=== PATIENT | female | born 1975 | race Two or more races ===

== ENCOUNTER 2023-01-18 23:56 | Emergency (ER) | payer OTHER ==
[~2023-01-18] VITALS: Ht 157.5 cm; Wt 85.0 kg
[2023-01-19] MEDS ORDERED: MYCO500T PO (00:08)
[2023-01-19] MEDS ORDERED: PRED-554 PO (00:09)
[2023-01-19] MEDS ORDERED: OMEP20 PO (00:10)
[2023-01-19] MEDS ORDERED: IBUP-1493 PO (00:12)
[2023-01-19 00:32] LABS: APPEARANCE,URINE CLEAR (CLEAR); BILIRUBIN,URINE NEGATIVE (NEGATIVE); COLOR,URINE YELLOW (YELLOW); GLUCOSE, URINE (UA) 70-100 mg/dL (NEGATIVE); KETONES,URINE NEGATIVE (NEGATIVE); LEUKOCYTE ESTERASE ,URINE NEGATIVE (NEGATIVE); NITRATE,URINE NEGATIVE (NEGATIVE); OCCULT BLOOD,URINE MODERATE (NEGATIVE); PROTEIN,URINE 30-70 mg/dL (NEGATIVE); SPECIFIC GRAVITIY, URINE 1.026 (1.003-1.030); UROBILINOGEN,URINE <=1.0 mg/dL (<=1.0)
[2023-01-19] MEDS ORDERED: KETOROLAC TROMETHAMINE 30 MG/ML VIAL IVP ONE (00:45)
[2023-01-19] MEDS ORDERED: ONDANSETRON HCL 4 MG/2 ML VIAL IVP ONE ×2 (00:45→06:15)
[2023-01-19 00:52] LABS: BASOPHILS % (AUTO) 0.2 % (0.0-2.0); EOSINOPHILS % (AUTO) 0 % (1.0-6.0); LYMPHOCYTES # (AUTO) 0.4 K/uL (1.0-4.8); LYMPHOCYTES % (AUTO) 10.3 % (22.0-44.0); MEAN CORPUSCULAR HEMOGLOBIN 27.6 pg (26.0-34.0); MEAN CORPUSCULAR HGB CONC 33.3 G/dL (31.0-37.0); MEAN CORPUSCULAR VOLUME 83 fL (80-100); MONOCYTES # (AUTO) 0.5 K/uL (0.1-1.0); MONOCYTES % (AUTO) 11.2 % (2.0-9.0); NEUTROPHILS # (AUTO) 3.2 K/uL (1.8-7.7); NEUTROPHILS % (AUTO) 78.3 % (40.0-70.0); PLATELET COUNT (AUTO) 132 K/uL (150-450); RED BLOOD CELL COUNT(AUTO) 3.61 MIL/uL (4.00-5.20); RED CELL DISTRIBUTION WIDTH 15.9 % (11.5-14.5)
[2023-01-19 00:52] LABS: BACTERIA,URINE None Seen /HPF (None Seen); SQUAMOUS EPITHELIAL CELL,UR Few /LPF (None Seen); WBC,URINE None Seen /HPF (0-5)
[2023-01-19 01:01] LABS: ANION GAP 3 mmol/L (8-16); CARBON DIOXIDE 28 mmol/L (22-29); CHLORIDE 105 mmol/L (98-107); CREATININE 0.76 mg/dL (0.60-1.30); GLOMERULAR FILTR. RATE CALC > 60 mL/min (>60); GLUCOSE,RANDOM 201 mg/dL (70-110); POTASSIUM 4.3 mmol/L (3.5-5.1); SODIUM SERUM 136 mmol/L (136-145); UREA NITROGEN, BLOOD 14 mg/dL (7-18)
[2023-01-19 01:06] LABS: ALANINE AMINOTRANSFERASE 139 U/L (12-78); ALBUMIN 2.7 g/dL (3.4-5.0); ALKALINE PHOSPHATASE 131 U/L (46-116); ASPARTATE AMINOTRANSFERASE 217 U/L (15-37); BILIRUBIN,TOTAL 0.2 mg/dL (0.1-1.0); TOTAL PROTEIN, SERUM 7.1 g/dL (6.4-8.2)
[2023-01-19 06:19] LABS: BASOPHILS % (AUTO) 0.2 % (0.0-2.0); EOSINOPHILS % (AUTO) 0 % (1.0-6.0); HEMATOCRIT 29.6 % (36-46); HEMOGLOBIN 9.8 g/dL (12.0-16.0); LYMPHOCYTES # (AUTO) 0.7 K/uL (1.0-4.8); LYMPHOCYTES % (AUTO) 14.6 % (22.0-44.0); MEAN CORPUSCULAR HEMOGLOBIN 27.7 pg (26.0-34.0); MEAN CORPUSCULAR HGB CONC 33.2 G/dL (31.0-37.0); MEAN CORPUSCULAR VOLUME 83 fL (80-100); MONOCYTES # (AUTO) 0.6 K/uL (0.1-1.0); MONOCYTES % (AUTO) 11.9 % (2.0-9.0); NEUTROPHILS # (AUTO) 3.8 K/uL (1.8-7.7); NEUTROPHILS % (AUTO) 73.3 % (40.0-70.0); PLATELET COUNT (AUTO) 157 K/uL (150-450); RED BLOOD CELL COUNT(AUTO) 3.55 MIL/uL (4.00-5.20); RED CELL DISTRIBUTION WIDTH 16.1 % (11.5-14.5); WHITE BLOOD COUNT (AUTO) 5.1 K/uL (4.5-11.0)
[2023-01-19 06:33] LABS: INR 0.9 (0.9-1.1); PROTHROMBIN TIME 9.8 SEC (9.4-11.6)
[2023-01-19 06:37] VITALS: TEMP 98
[2023-01-19 06:42] LABS: TROPONIN I-HIGH SENSITIVITY 9 ng/L (<51)
[2023-01-19 08:07] LABS: COVID AG,FIA SOURCE NASAL SWAB
[2023-01-19 08:31] LABS: SARS-COV2 (COVID) ANTIGEN,FIA Negative (Negative)
[2023-01-19 09:01] LABS: CREATINE KINASE, TOTAL ONLY 538 U/L (26-192)
[2023-01-19] MEDS ORDERED: CETI10TA58 PO (11:37)
[2023-01-19] MEDS ORDERED: METF-1211 PO (11:37)
[2023-01-19 16:14] VITALS: BP 133/87; PULSE 127; RESP 20
== END 2023-01-19 16:14 | disposition short-term general hospital (02) ==
LOC: EMS 23:57
DX: M79.81 Nontraumatic hematoma of soft tissue (principal); E11.65 Type 2 diabetes mellitus with hyperglycemia; R79.89 Other specified abnormal findings of blood chemistry; Z20.822 Contact with and (suspected) exposure to COVID-19
CPT/HCPCS: 99291; 87426; 80053; 81001; 82550; 84484; 84703; 85025; 85610; 85730; 36415; 96374; 96375; 96376; J1885; J2405

== ENCOUNTER 2023-02-23 21:58 | Inpatient (IN) | payer OTHER ==
[~2023-02-23] VITALS: Ht 160 cm; Wt 63.2 kg
[~2023-02-23 21:58] MED LIST: CETI10TA58 PO; IBUP-1493 PO; METF-1211 PO; MYCO500T PO; OMEP20 PO; PRED-554 PO
[2023-02-23] MEDS ORDERED: ALBUTEROL SULFATE 2.5 MG/0.5 ML NEB SOLUTION NEB ONE (22:55)
[2023-02-23] MEDS ORDERED: 0.9% SODIUM CHLORIDE 5 ML NEB SOLUTION NEB ONE (23:01)
[2023-02-23 23:15] VITALS: PULSE 117; RESP 22; O2SAT 93
[2023-02-23 23:27] LABS: BASOPHILS % (AUTO) 0.5 % (0.0-2.0); EOSINOPHILS % (AUTO) 0 % (1.0-6.0); HEMATOCRIT 33.8 % (36-46); LYMPHOCYTES # (AUTO) 0.4 K/uL (1.0-4.8); LYMPHOCYTES % (AUTO) 9.9 % (22.0-44.0); MEAN CORPUSCULAR HEMOGLOBIN 27.9 pg (26.0-34.0); MEAN CORPUSCULAR HGB CONC 32.5 G/dL (31.0-37.0); MEAN CORPUSCULAR VOLUME 86 fL (80-100); MONOCYTES # (AUTO) 0.2 K/uL (0.1-1.0); MONOCYTES % (AUTO) 4.8 % (2.0-9.0); NEUTROPHILS # (AUTO) 3.5 K/uL (1.8-7.7); NEUTROPHILS % (AUTO) 84.8 % (40.0-70.0); PLATELET COUNT (AUTO) 215 K/uL (150-450); RED BLOOD CELL COUNT(AUTO) 3.94 MIL/uL (4.00-5.20); RED CELL DISTRIBUTION WIDTH 19.4 % (11.5-14.5); WHITE BLOOD COUNT (AUTO) 4.1 K/uL (4.5-11.0)
[2023-02-23 23:30] VITALS: PULSE 118; RESP 22; O2SAT 97
[2023-02-23 23:34] LABS: ABG BASE EXCESS -1.6 mmol/L (-2.0-3.0); ABG CARBOXYHEMOGLOBIN 0.7 % (0.0-1.5); ABG HCO3 23.7 mmol/L (22.0-26.0); ABG METHEMOGLOBIN 0.7 % (0.0-1.5); ABG OXYGEN CONTENT 16.9 mL/dL (15.0-23.0); ABG OXYHEMOGLOBIN 95.6 % (94.0-100.0); ABG PCO2 33 mmHg (35-45); ABG PH 7.447 (7.35-7.450); ABG TOTAL HEMOGLOBIN 12.5 G/dL (12.0-18.0); PO2, ARTERIAL BG 90.5 mmHg (88.0-96.0); SOURCE, BLOOD GAS ARTERIAL; TEMPERATURE, FAHRENHEIT, BG 98.3 FAHREN (96.0-98.6)
[2023-02-23 23:35] LABS: ABG A-A DIFF O2 48.4 mmHg (10-20.0); ALLEN TEST, BLOOD GAS Positive; O2 DEVICE,BLOOD GAS CANNULA (ROOM AIR); SITE, BLOOD GAS LFT RADIAL
[2023-02-23 23:36] LABS: COVID AG,FIA SOURCE NASAL SWAB
[2023-02-23 23:40] LABS: PROTHROMBIN TIME 10.4 SEC (9.4-11.6)
[2023-02-23 23:44] LABS: TROPONIN I-HIGH SENSITIVITY 7 ng/L (<51)
[2023-02-23 23:49] LABS: ANION GAP 10 mmol/L (8-16); B-TYPE NATRIURETIC PEPTIDE 10 pg/mL (0-100); CALCIUM, TOTAL 8.4 mg/dL (8.8-10.5); CARBON DIOXIDE 24 mmol/L (22-29); CHLORIDE 102 mmol/L (98-107); CREATININE 0.61 mg/dL (0.60-1.30); GLOMERULAR FILTR. RATE CALC > 60 mL/min (>60); GLUCOSE,RANDOM 179 mg/dL (70-110); POTASSIUM 4.4 mmol/L (3.5-5.1); SODIUM SERUM 136 mmol/L (136-145); UREA NITROGEN, BLOOD 10 mg/dL (7-18)
[2023-02-23 23:56] LABS: ALANINE AMINOTRANSFERASE 90 U/L (12-78); ALBUMIN 2.6 g/dL (3.4-5.0); ALKALINE PHOSPHATASE 140 U/L (46-116); ASPARTATE AMINOTRANSFERASE 164 U/L (15-37); BILIRUBIN,TOTAL 0.3 mg/dL (0.1-1.0); CREATINE KINASE, TOTAL ONLY 121 U/L (26-192); TOTAL PROTEIN, SERUM 7.1 g/dL (6.4-8.2)
[2023-02-24] VITALS (7 sets, daily range): BP systolic 121–144; BP diastolic 87–95; PULSE 92–145; RESP 18–30; TEMP 98.3–100.2; O2SAT 99–100
[2023-02-24] MEDS ORDERED: DEXAMETHASONE SOD PHOS 4 MG/ML 5 ML VIAL IVP ONE
[2023-02-24 00:02] LABS: LACTIC ACID 2.7 mmol/L (0.4-2.0)
[2023-02-24 00:04] LABS: INFLUENZA TYPE A NEGATIVE FOR TYPE A (NEGATIVE); INFLUENZA TYPE B NEGATIVE FOR TYPE B (NEGATIVE)
[2023-02-24] MEDS ORDERED: PIPERACILLIN/TAZO 3.375 GM/D5W 50 ML IV ONE (00:15)
[2023-02-24] MEDS ORDERED: SODIUM CHLORIDE 0.9% 1,000 ML IV ONE (00:15)
[2023-02-24 00:27] LABS: SARS-COV2 (COVID) ANTIGEN,FIA Positive (Negative)
[2023-02-24] MEDS ORDERED: REMDESIVIR 200 MG in SODIUM CHLORIDE 0.9% 250 ML IV ONE (00:30)
[2023-02-24] MEDS ORDERED: 0.9% SODIUM CHLORIDE 10 ML SYRINGE IVP PRN (01:00)
[2023-02-24] MEDS ORDERED: ONDANSETRON HCL 4 MG/2 ML VIAL IVP PRN (01:00)
[2023-02-24] MEDS ORDERED: ACETAMINOPHEN 325 MG TABLET PO PRN (01:00)
[2023-02-24] MEDS ORDERED: IPRATROPIUM BROMIDE 0.5 MG/2.5 ML NEB SOLUTION NEB SCH (02:00)
[2023-02-24] MEDS ORDERED: ALBUTEROL SULFATE 2.5 MG/0.5 ML NEB SOLUTION NEB SCH (02:00)
[2023-02-24 03:08] LABS: APPEARANCE,URINE CLEAR (CLEAR); BILIRUBIN,URINE NEGATIVE (NEGATIVE); COLOR,URINE LIGHT YELLOW (YELLOW); GLUCOSE, URINE (UA) NEGATIVE (NEGATIVE); KETONES,URINE NEGATIVE (NEGATIVE); LEUKOCYTE ESTERASE ,URINE NEGATIVE (NEGATIVE); NITRATE,URINE NEGATIVE (NEGATIVE); OCCULT BLOOD,URINE LARGE (NEGATIVE); PH,URINE 6.5 (5.0-8.0); PROTEIN,URINE TRACE mg/dL (NEGATIVE); UROBILINOGEN,URINE <=1.0 mg/dL (<=1.0)
[2023-02-24 03:16] LABS: BACTERIA,URINE None Seen /HPF (None Seen); SQUAMOUS EPITHELIAL CELL,UR Few /LPF (None Seen); WBC,URINE None Seen /HPF (0-5)
[2023-02-24] MEDS ORDERED: INFLUENZA VIRUS VACCINE QVS 2023-24 (6MO+)/PF 60 MCG/0.5 ML SYRINGE IM. ONE (07:00)
[2023-02-24] MEDS ORDERED: CETIRIZINE HCL 10 MG TABLET PO PRN (17:30)
[2023-02-24] MEDS ORDERED: ALBUTEROL SULFATE 2.5 MG/0.5 ML NEB SOLUTION NEB PRN (17:30)
[2023-02-24] MEDS ORDERED: HYDROCODONE/ACETAMINOPHEN 5-325 MG TABLET PO PRN (17:30)
[2023-02-24] MEDS ORDERED: IBUPROFEN 800 MG TABLET PO PRN (17:30)
[2023-02-24] MEDS ORDERED: ZOLPIDEM TARTRATE 5 MG TABLET PO PRN (17:30)
[2023-02-24] MEDS ORDERED: MAGNESIUM HYDROXIDE SUSPENSION 30 ML UDCUP PO PRN (17:30)
[2023-02-24] MEDS ORDERED: BISACODYL 10 MG RECTAL RECTAL SUPPOSITORY PR PRN (17:30)
[2023-02-24] MEDS ORDERED: MORPHINE SULFATE 2 MG/ML SYRINGE IVP PRN (17:30)
[2023-02-24] MEDS ORDERED: IPRATROPIUM BROMIDE 0.5 MG/2.5 ML NEB SOLUTION NEB PRN (17:30)
[2023-02-24] MEDS ORDERED: SODIUM CHLORIDE 0.9% 250 ML IV ONE (19:23)
[2023-02-24] MEDS: PIPERACILLIN/TAZO 3.375 GM/D5W 50 ML IV SCH ×2 (19:35→23:56)
[2023-02-24] MEDS: MYCOPHENOLATE MOFETIL 250 MG CAPSULE PO SCH (20:59)
[2023-02-24] MEDS: ACETAMINOPHEN 325 MG TABLET PO PRN (20:59)
[2023-02-24] MEDS: ALBUTEROL SULFATE HFA 90 MCG/PUFF 8 GM INHALER IH PRN ×2 (20:59→23:57)
[2023-02-24] MEDS: HEPARIN SODIUM,PORCINE 5,000 UNITS/ML VIAL SQ SCH (23:56)
[2023-02-25] VITALS (14 sets, daily range): BP systolic 105–126; BP diastolic 72–92; PULSE 121–144; RESP 19–24; TEMP 98.4–100.2; O2SAT 91–100
[2023-02-25] MEDS: PIPERACILLIN/TAZO 3.375 GM/D5W 50 ML IV SCH ×3 (05:58→17:34)
[2023-02-25] MEDS ORDERED: PANTOPRAZOLE SODIUM 40 MG DR TABLET PO SCH (09:00)
[2023-02-25] MEDS: HEPARIN SODIUM,PORCINE 5,000 UNITS/ML VIAL SQ SCH ×2 (09:27→17:33)
[2023-02-25] MEDS: DEXAMETHASONE SOD PHOS 4 MG/ML VIAL IVP SCH (09:28)
[2023-02-25] MEDS: OMEPRAZOLE 20 MG CAPSULE PO SCH (09:28)
[2023-02-25] MEDS: MYCOPHENOLATE MOFETIL 250 MG CAPSULE PO SCH ×2 (09:28→21:17)
[2023-02-25] MEDS: REMDESIVIR 100 MG in SODIUM CHLORIDE 0.9% 250 ML IV SCH (09:29)
[2023-02-25] MEDS: ACETAMINOPHEN 325 MG TABLET PO PRN (09:29)
[2023-02-25] MEDS: LEVALBUTEROL 0.63 MG/3 ML NEB SOLUTION NEB SCH ×4 (10:16→22:43)
[2023-02-25] MEDS: DOXYCYCLINE HYCLATE 100 MG TABLET PO SCH ×2 (13:14→21:17)
[2023-02-25] MEDS: IPRATROPIUM BROMIDE 0.5 MG/2.5 ML NEB SOLUTION NEB SCH ×3 (14:25→22:43)
[2023-02-26] VITALS (17 sets, daily range): BP systolic 114–131; BP diastolic 59–83; PULSE 113–148; RESP 24–44; TEMP 98.8–100.4; O2SAT 89–96
[2023-02-26] MEDS: PIPERACILLIN/TAZO 3.375 GM/D5W 50 ML IV SCH ×5 (00:14→23:55)
[2023-02-26] MEDS: HEPARIN SODIUM,PORCINE 5,000 UNITS/ML VIAL SQ SCH ×4 (00:16→23:55)
[2023-02-26] MEDS ORDERED: SODIUM CHLORIDE 0.9% 500 ML IV ONE (01:45)
[2023-02-26] MEDS ORDERED: SODIUM CHLORIDE 0.9% 1,000 ML IV ONE (01:45)
[2023-02-26] MEDS: LEVALBUTEROL 0.63 MG/3 ML NEB SOLUTION NEB SCH ×6 (02:54→22:45)
[2023-02-26] MEDS: IPRATROPIUM BROMIDE 0.5 MG/2.5 ML NEB SOLUTION NEB SCH ×6 (02:54→22:45)
[2023-02-26 03:42] LABS: ABG BASE EXCESS -1.1 mmol/L (-2.0-3.0); ABG CARBOXYHEMOGLOBIN 0.7 % (0.0-1.5); ABG HCO3 24.2 mmol/L (22.0-26.0); ABG METHEMOGLOBIN 0.1 % (0.0-1.5); ABG OXYGEN CONTENT 16.1 mL/dL (15.0-23.0); ABG OXYGEN SATURATION 92.4 % (95.0-98.0); ABG OXYHEMOGLOBIN 91.7 % (94.0-100.0); ABG PCO2 30 mmHg (35-45); ABG PH 7.482 (7.35-7.450); ABG TOTAL HEMOGLOBIN 12.5 G/dL (12.0-18.0); PO2, ARTERIAL BG 68.6 mmHg (88.0-96.0); SOURCE, BLOOD GAS ARTERIAL; TEMPERATURE, FAHRENHEIT, BG 100.6 FAHREN (96.0-98.6)
[2023-02-26 03:43] LABS: ABG A-A DIFF O2 151.7 mmHg (10-20.0); ALLEN TEST, BLOOD GAS Positive; O2 DEVICE,BLOOD GAS NASAL CANNULA (ROOM AIR); SITE, BLOOD GAS LFT RADIAL
[2023-02-26] MEDS: ONDANSETRON HCL 4 MG/2 ML VIAL IVP PRN (06:06)
[2023-02-26 06:55] LABS: BASOPHILS % (AUTO) 0.3 % (0.0-2.0); EOSINOPHILS % (AUTO) 0 % (1.0-6.0); HEMATOCRIT 35.4 % (36-46); HEMOGLOBIN 11.6 g/dL (12.0-16.0); LYMPHOCYTES # (AUTO) 0.7 K/uL (1.0-4.8); LYMPHOCYTES % (AUTO) 11.5 % (22.0-44.0); MEAN CORPUSCULAR HEMOGLOBIN 28.2 pg (26.0-34.0); MEAN CORPUSCULAR HGB CONC 32.7 G/dL (31.0-37.0); MEAN CORPUSCULAR VOLUME 86 fL (80-100); MONOCYTES # (AUTO) 0.2 K/uL (0.1-1.0); MONOCYTES % (AUTO) 3.4 % (2.0-9.0); NEUTROPHILS # (AUTO) 5.5 K/uL (1.8-7.7); NEUTROPHILS % (AUTO) 84.8 % (40.0-70.0); PLATELET COUNT (AUTO) 238 K/uL (150-450); RED BLOOD CELL COUNT(AUTO) 4.11 MIL/uL (4.00-5.20); RED CELL DISTRIBUTION WIDTH 18.7 % (11.5-14.5); WHITE BLOOD COUNT (AUTO) 6.4 K/uL (4.5-11.0)
[2023-02-26 07:00] LABS: ALANINE AMINOTRANSFERASE 91 U/L (12-78); ALBUMIN 2.2 g/dL (3.4-5.0); ALKALINE PHOSPHATASE 148 U/L (46-116); ANION GAP 9 mmol/L (8-16); ASPARTATE AMINOTRANSFERASE 206 U/L (15-37); BILIRUBIN,TOTAL 0.7 mg/dL (0.1-1.0); CALCIUM, TOTAL 7.5 mg/dL (8.8-10.5); CARBON DIOXIDE 24 mmol/L (22-29); CHLORIDE 101 mmol/L (98-107); CREATININE 0.66 mg/dL (0.60-1.30); GLOMERULAR FILTR. RATE CALC > 60 mL/min (>60); GLUCOSE,RANDOM 160 mg/dL (70-110); POTASSIUM 4.2 mmol/L (3.5-5.1); SODIUM SERUM 134 mmol/L (136-145); TOTAL PROTEIN, SERUM 6.5 g/dL (6.4-8.2); UREA NITROGEN, BLOOD 13 mg/dL (7-18)
[2023-02-26] MEDS: REMDESIVIR 100 MG in SODIUM CHLORIDE 0.9% 250 ML IV SCH (08:22)
[2023-02-26] MEDS: DEXAMETHASONE SOD PHOS 4 MG/ML VIAL IVP SCH (08:24)
[2023-02-26] MEDS: DOXYCYCLINE HYCLATE 100 MG TABLET PO SCH ×2 (08:24→20:34)
[2023-02-26] MEDS: OMEPRAZOLE 20 MG CAPSULE PO SCH (08:24)
[2023-02-26] MEDS: MYCOPHENOLATE MOFETIL 250 MG CAPSULE PO SCH ×2 (08:24→20:35)
[2023-02-26] MEDS: ACETAMINOPHEN 325 MG TABLET PO PRN (08:25)
[2023-02-26 10:07] LABS: HEPATITIS C AB (EIA) Non Reactive (Non Reactive)
[2023-02-26] MEDS ORDERED: TOCILIZUMAB 600 MG in SODIUM CHLORIDE 0.9% 70 ML IV ONE (16:45)
[2023-02-27] VITALS (16 sets, daily range): BP systolic 108–132; BP diastolic 62–91; PULSE 109–133; RESP 22–32; TEMP 98.4–98.6; O2SAT 88–96
[2023-02-27] MEDS: IPRATROPIUM BROMIDE 0.5 MG/2.5 ML NEB SOLUTION NEB SCH ×6 (02:43→23:39)
[2023-02-27] MEDS: LEVALBUTEROL 0.63 MG/3 ML NEB SOLUTION NEB SCH ×6 (02:43→23:39)
[2023-02-27] MEDS: PIPERACILLIN/TAZO 3.375 GM/D5W 50 ML IV SCH ×3 (05:27→18:08)
[2023-02-27] MEDS: ONDANSETRON HCL 4 MG/2 ML VIAL IVP PRN (05:43)
[2023-02-27 07:07] LABS: BASOPHILS % (AUTO) 0.2 % (0.0-2.0); EOSINOPHILS % (AUTO) 0 % (1.0-6.0); HEMATOCRIT 33.2 % (36-46); HEMOGLOBIN 11.3 g/dL (12.0-16.0); LYMPHOCYTES # (AUTO) 0.6 K/uL (1.0-4.8); LYMPHOCYTES % (AUTO) 13.6 % (22.0-44.0); MEAN CORPUSCULAR HEMOGLOBIN 29.3 pg (26.0-34.0); MEAN CORPUSCULAR VOLUME 86 fL (80-100); MONOCYTES # (AUTO) 0.1 K/uL (0.1-1.0); MONOCYTES % (AUTO) 3.5 % (2.0-9.0); NEUTROPHILS # (AUTO) 3.5 K/uL (1.8-7.7); NEUTROPHILS % (AUTO) 82.7 % (40.0-70.0); PLATELET COUNT (AUTO) 242 K/uL (150-450); RED BLOOD CELL COUNT(AUTO) 3.85 MIL/uL (4.00-5.20); RED CELL DISTRIBUTION WIDTH 18.6 % (11.5-14.5); WHITE BLOOD COUNT (AUTO) 4.3 K/uL (4.5-11.0)
[2023-02-27 07:22] LABS: ALANINE AMINOTRANSFERASE 87 U/L (12-78); ALBUMIN 2.1 g/dL (3.4-5.0); ALKALINE PHOSPHATASE 168 U/L (46-116); ANION GAP 10 mmol/L (8-16); ASPARTATE AMINOTRANSFERASE 233 U/L (15-37); BILIRUBIN,TOTAL 0.7 mg/dL (0.1-1.0); CALCIUM, TOTAL 7.5 mg/dL (8.8-10.5); CARBON DIOXIDE 24 mmol/L (22-29); CHLORIDE 101 mmol/L (98-107); CREATININE 0.58 mg/dL (0.60-1.30); GLOMERULAR FILTR. RATE CALC > 60 mL/min (>60); GLUCOSE,RANDOM 117 mg/dL (70-110); POTASSIUM 3.8 mmol/L (3.5-5.1); SODIUM SERUM 135 mmol/L (136-145); TOTAL PROTEIN, SERUM 6.2 g/dL (6.4-8.2); UREA NITROGEN, BLOOD 14 mg/dL (7-18)
[2023-02-27] MEDS: REMDESIVIR 100 MG in SODIUM CHLORIDE 0.9% 250 ML IV SCH (08:17)
[2023-02-27] MEDS: HEPARIN SODIUM,PORCINE 5,000 UNITS/ML VIAL SQ SCH ×2 (08:17→16:19)
[2023-02-27] MEDS: DOXYCYCLINE HYCLATE 100 MG TABLET PO SCH ×2 (08:18→21:23)
[2023-02-27] MEDS: MYCOPHENOLATE MOFETIL 250 MG CAPSULE PO SCH ×2 (08:18→21:23)
[2023-02-27] MEDS: OMEPRAZOLE 20 MG CAPSULE PO SCH (08:18)
[2023-02-27] MEDS: DEXAMETHASONE SOD PHOS 4 MG/ML VIAL IVP SCH (08:18)
[2023-02-27] MEDS: ACETAMINOPHEN 325 MG TABLET PO PRN (12:09)
[2023-02-27] MEDS ORDERED: *CLINICAL-BACTRIM/SEPTRA IVPB DOSING CLINICAL ONE (14:45)
[2023-02-27 16:06] LABS: QUANTIFERON+, Nil Value 0.19 IU/mL; QUANTIFERON+,TB2 Antigen Value 0.17 IU/mL; QUANTIFERON, TB GOLD PLUS Indeterminate (Negative)
[2023-02-27 16:06] LABS: LEGIONELLA PNEUMO AG URINE Negative (Negative)
[2023-02-27] MEDS: DEXTROSE IV SCH (16:56)
[2023-02-27] MEDS: WATER IV SCH (16:56)
[2023-02-27] MEDS: TRIMETH IV SCH (16:56)
[2023-02-27] MEDS: SULFAMETHOX IV SCH (16:56)
[2023-02-27 17:06] LABS: S PNEUMO SOURCE Urine; STREP PNEUMONIAE AG URINE Negative (Negative)
[2023-02-28] VITALS (19 sets, daily range): BP systolic 81–127; BP diastolic 45–95; PULSE 91–137; RESP 18–54; TEMP 98–98.7; O2SAT 64–95
[2023-02-28] MEDS: PIPERACILLIN/TAZO 3.375 GM/D5W 50 ML IV SCH ×4 (00:15→18:16)
[2023-02-28] MEDS: HEPARIN SODIUM,PORCINE 5,000 UNITS/ML VIAL SQ SCH ×3 (00:16→16:07)
[2023-02-28] MEDS: WATER IV SCH ×3 (00:16→17:17)
[2023-02-28] MEDS: TRIMETH IV SCH ×3 (00:16→17:17)
[2023-02-28] MEDS: DEXTROSE IV SCH ×3 (00:16→17:17)
[2023-02-28] MEDS: SULFAMETHOX IV SCH ×3 (00:16→17:17)
[2023-02-28] MEDS: IPRATROPIUM BROMIDE 0.5 MG/2.5 ML NEB SOLUTION NEB SCH ×6 (03:23→23:23)
[2023-02-28] MEDS: LEVALBUTEROL 0.63 MG/3 ML NEB SOLUTION NEB SCH ×6 (03:23→23:23)
[2023-02-28 06:41] LABS: BASOPHILS % (AUTO) 0.1 % (0.0-2.0); EOSINOPHILS % (AUTO) 0 % (1.0-6.0); HEMATOCRIT 32.9 % (36-46); HEMOGLOBIN 10.8 g/dL (12.0-16.0); LYMPHOCYTES # (AUTO) 0.6 K/uL (1.0-4.8); LYMPHOCYTES % (AUTO) 13.3 % (22.0-44.0); MEAN CORPUSCULAR HEMOGLOBIN 28.4 pg (26.0-34.0); MEAN CORPUSCULAR HGB CONC 32.7 G/dL (31.0-37.0); MEAN CORPUSCULAR VOLUME 87 fL (80-100); MONOCYTES # (AUTO) 0.1 K/uL (0.1-1.0); MONOCYTES % (AUTO) 2.4 % (2.0-9.0); NEUTROPHILS # (AUTO) 3.8 K/uL (1.8-7.7); NEUTROPHILS % (AUTO) 84.2 % (40.0-70.0); PLATELET COUNT (AUTO) 242 K/uL (150-450); RED BLOOD CELL COUNT(AUTO) 3.79 MIL/uL (4.00-5.20); RED CELL DISTRIBUTION WIDTH 18.6 % (11.5-14.5); WHITE BLOOD COUNT (AUTO) 4.5 K/uL (4.5-11.0)
[2023-02-28 07:13] LABS: ALANINE AMINOTRANSFERASE 110 U/L (12-78); ALBUMIN 2.1 g/dL (3.4-5.0); ALKALINE PHOSPHATASE 247 U/L (46-116); ANION GAP 9 mmol/L (8-16); ASPARTATE AMINOTRANSFERASE 330 U/L (15-37); BILIRUBIN,TOTAL 0.6 mg/dL (0.1-1.0); CALCIUM, TOTAL 7.5 mg/dL (8.8-10.5); CARBON DIOXIDE 24 mmol/L (22-29); CHLORIDE 99 mmol/L (98-107); CREATININE 0.77 mg/dL (0.60-1.30); GLOMERULAR FILTR. RATE CALC > 60 mL/min (>60); GLUCOSE,RANDOM 136 mg/dL (70-110); POTASSIUM 5.1 mmol/L (3.5-5.1); SODIUM SERUM 132 mmol/L (136-145); TOTAL PROTEIN, SERUM 5.6 g/dL (6.4-8.2); UREA NITROGEN, BLOOD 15 mg/dL (7-18)
[2023-02-28] MEDS: OMEPRAZOLE 20 MG CAPSULE PO SCH (08:40)
[2023-02-28] MEDS: MYCOPHENOLATE MOFETIL 250 MG CAPSULE PO SCH (08:40)
[2023-02-28] MEDS: DOXYCYCLINE HYCLATE 100 MG TABLET PO SCH (08:40)
[2023-02-28] MEDS: DEXAMETHASONE SOD PHOS 4 MG/ML VIAL IVP SCH (08:40)
[2023-02-28] MEDS: REMDESIVIR 100 MG in SODIUM CHLORIDE 0.9% 250 ML IV SCH (09:53)
[2023-02-28 15:22] LABS: ABG BASE EXCESS -6.3 mmol/L (-2.0-3.0); ABG CARBOXYHEMOGLOBIN 0.7 % (0.0-1.5); ABG HCO3 19.9 mmol/L (22.0-26.0); ABG METHEMOGLOBIN 0.8 % (0.0-1.5); ABG OXYGEN CONTENT 13.6 mL/dL (15.0-23.0); ABG OXYHEMOGLOBIN 81.2 % (94.0-100.0); ABG PCO2 29 mmHg (35-45); ABG PH 7.421 (7.35-7.450); ABG TOTAL HEMOGLOBIN 11.9 G/dL (12.0-18.0); PO2, ARTERIAL BG 50.1 mmHg (88.0-96.0); SOURCE, BLOOD GAS ARTERIAL; TEMPERATURE, FAHRENHEIT, BG 98.2 FAHREN (96.0-98.6)
[2023-02-28 15:23] LABS: ABG OXYGEN SATURATION 82.4 % (95.0-98.0); ALLEN TEST, BLOOD GAS Positive; O2 DEVICE,BLOOD GAS HI FL CANNULA (ROOM AIR); SITE, BLOOD GAS LFT BRACHIAL
[2023-02-28] MEDS: DEXMEDETOMIDINE HCL 400 MCG in SODIUM CHLORIDE 0.9% 96 ML IV PRN (15:47)
[2023-02-28 15:54] LABS: ANION GAP 8 mmol/L (8-16); CALCIUM, TOTAL 7.3 mg/dL (8.8-10.5); CARBON DIOXIDE 23 mmol/L (22-29); CHLORIDE 98 mmol/L (98-107); CREATININE 0.67 mg/dL (0.60-1.30); GLOMERULAR FILTR. RATE CALC > 60 mL/min (>60); GLUCOSE,RANDOM 200 mg/dL (70-110); SODIUM SERUM 129 mmol/L (136-145); UREA NITROGEN, BLOOD 13 mg/dL (7-18)
[2023-02-28 15:55] LABS: ALANINE AMINOTRANSFERASE 124 U/L (12-78); ALBUMIN 2.2 g/dL (3.4-5.0); ALKALINE PHOSPHATASE 301 U/L (46-116); ASPARTATE AMINOTRANSFERASE 345 U/L (15-37); BILIRUBIN,TOTAL 0.6 mg/dL (0.1-1.0); TOTAL PROTEIN, SERUM 5.9 g/dL (6.4-8.2)
[2023-02-28 16:42] LABS: ABG BASE EXCESS -6.7 mmol/L (-2.0-3.0); ABG CARBOXYHEMOGLOBIN 0.5 % (0.0-1.5); ABG HCO3 19.5 mmol/L (22.0-26.0); ABG METHEMOGLOBIN 0.8 % (0.0-1.5); ABG OXYGEN CONTENT 16.4 mL/dL (15.0-23.0); ABG OXYGEN SATURATION 96.9 % (95.0-98.0); ABG OXYHEMOGLOBIN 95.6 % (94.0-100.0); ABG PCO2 37 mmHg (35-45); ABG PH 7.336 (7.35-7.450); ABG TOTAL HEMOGLOBIN 12.1 G/dL (12.0-18.0); ALLEN TEST, BLOOD GAS Positive; O2 DEVICE,BLOOD GAS BIPAP (ROOM AIR); PO2, ARTERIAL BG 97.1 mmHg (88.0-96.0); SITE, BLOOD GAS LFT BRACHIAL; SOURCE, BLOOD GAS ARTERIAL; TEMPERATURE, FAHRENHEIT, BG 98.2 FAHREN (96.0-98.6)
[2023-02-28 22:28] LABS: ABG BASE EXCESS -5.4 mmol/L (-2.0-3.0); ABG CARBOXYHEMOGLOBIN 0.4 % (0.0-1.5); ABG HCO3 20.3 mmol/L (22.0-26.0); ABG METHEMOGLOBIN 0.3 % (0.0-1.5); ABG OXYGEN CONTENT 14.4 mL/dL (15.0-23.0); ABG OXYGEN SATURATION 92.4 % (95.0-98.0); ABG OXYHEMOGLOBIN 91.8 % (94.0-100.0); ABG PCO2 38 mmHg (35-45); ABG PH 7.345 (7.35-7.450); ABG TOTAL HEMOGLOBIN 11.1 G/dL (12.0-18.0); PO2, ARTERIAL BG 71.1 mmHg (88.0-96.0); SOURCE, BLOOD GAS ARTERIAL
[2023-02-28 22:29] LABS: ABG A-A DIFF O2 604.7 mmHg (10-20.0); ALLEN TEST, BLOOD GAS Positive; O2 DEVICE,BLOOD GAS BIPAP (ROOM AIR); SITE, BLOOD GAS RT RADIAL; VENT MODE, BG NIPPV (ROOM AIR)
[2023-02-28 22:30] LABS: SPONTANEOUS VT, BG 796 ml
[2023-02-28] MEDS ORDERED: PROPOFOL 1000 MG/ISO-OSM 100 ML ONE (22:32)
[2023-02-28] MEDS ORDERED: ROCURONIUM BROMIDE 10 MG/ML 5 ML VIAL ONE ×2 (22:33→22:35)
[2023-02-28] MEDS ORDERED: ROCURONIUM BROMIDE 10 MG/ML 5 ML VIAL IVP ONE (23:00)
[2023-02-28] MEDS ORDERED: ETOMIDATE 2 MG/ML 10 ML VIAL IVP ONE (23:00)
[2023-03-01] VITALS (24 sets, daily range): BP systolic 92–147; BP diastolic 56–97; PULSE 66–117; RESP 20–34; TEMP 98.3–100.5; O2SAT 78–98
[2023-03-01] MEDS: DEXTROSE IV SCH ×3 (00:06→15:30)
[2023-03-01] MEDS: SULFAMETHOX IV SCH ×3 (00:06→15:30)
[2023-03-01] MEDS: WATER IV SCH ×3 (00:06→15:30)
[2023-03-01] MEDS: TRIMETH IV SCH ×3 (00:06→15:30)
[2023-03-01] MEDS: DEXMEDETOMIDINE HCL 400 MCG in SODIUM CHLORIDE 0.9% 96 ML IV PRN ×4 (00:07→14:00)
[2023-03-01] MEDS: PIPERACILLIN/TAZO 3.375 GM/D5W 50 ML IV SCH ×4 (01:34→18:17)
[2023-03-01] MEDS: HEPARIN SODIUM,PORCINE 5,000 UNITS/ML VIAL SQ SCH ×3 (01:34→16:09)
[2023-03-01 01:36] LABS: ABG BASE EXCESS -8.2 mmol/L (-2.0-3.0); ABG CARBOXYHEMOGLOBIN 0.6 % (0.0-1.5); ABG HCO3 17.8 mmol/L (22.0-26.0); ABG METHEMOGLOBIN 0.3 % (0.0-1.5); ABG OXYHEMOGLOBIN 79.4 % (94.0-100.0); ABG PCO2 43 mmHg (35-45); ABG PH 7.262 (7.35-7.450); ABG TOTAL HEMOGLOBIN 11.6 G/dL (12.0-18.0); PO2, ARTERIAL BG 51.4 mmHg (88.0-96.0); SOURCE, BLOOD GAS ARTERIAL; TEMPERATURE, FAHRENHEIT, BG 97.5 FAHREN (96.0-98.6)
[2023-03-01 01:52] LABS: ABG OXYGEN SATURATION 80.1 % (95.0-98.0); ALLEN TEST, BLOOD GAS Positive; SITE, BLOOD GAS RT RADIAL
[2023-03-01 01:53] LABS: ABG A-A DIFF O2 620.4 mmHg (10-20.0); O2 DEVICE,BLOOD GAS VENTILATOR (ROOM AIR); PEEP,BG 8 cm H2O; SPONTANEOUS VT, BG 420 ml; VT, ABG 450 ml
[2023-03-01] MEDS: LEVALBUTEROL 0.63 MG/3 ML NEB SOLUTION NEB SCH ×6 (02:00→22:51)
[2023-03-01] MEDS: IPRATROPIUM BROMIDE 0.5 MG/2.5 ML NEB SOLUTION NEB SCH ×6 (02:00→22:51)
[2023-03-01] MEDS: PHENYLEPHRINE 200 MG/D5%-WATER 250 ML IV PRN (02:37)
[2023-03-01] MEDS: PROPOFOL 1000 MG/ISO-OSM 100 ML IV PRN ×6 (04:17→23:01)
[2023-03-01 05:06] LABS: GLU 6-PHOSPATE DEHYDRO-RBC 3.63 x10E6/uL (3.77-5.28)
[2023-03-01 05:14] LABS: ABG BASE EXCESS -7.5 mmol/L (-2.0-3.0); ABG CARBOXYHEMOGLOBIN 0.7 % (0.0-1.5); ABG HCO3 18.7 mmol/L (22.0-26.0); ABG METHEMOGLOBIN 0.3 % (0.0-1.5); ABG OXYGEN CONTENT 15.7 mL/dL (15.0-23.0); ABG OXYGEN SATURATION 87.3 % (95.0-98.0); ABG OXYHEMOGLOBIN 86.4 % (94.0-100.0); ABG PCO2 36 mmHg (35-45); ABG PH 7.327 (7.35-7.450); ABG TOTAL HEMOGLOBIN 12.9 G/dL (12.0-18.0); PO2, ARTERIAL BG 56.8 mmHg (88.0-96.0); SOURCE, BLOOD GAS ARTERIAL; TEMPERATURE, FAHRENHEIT, BG 97.4 FAHREN (96.0-98.6)
[2023-03-01 05:15] LABS: ABG A-A DIFF O2 621.9 mmHg (10-20.0); ALLEN TEST, BLOOD GAS Positive; O2 DEVICE,BLOOD GAS VENTILATOR (ROOM AIR); PEEP,BG 10 cm H2O; SITE, BLOOD GAS RT RADIAL; SPONTANEOUS VT, BG 450 ml; VT, ABG 450 ml
[2023-03-01 06:06] LABS: CHLORIDE 95 mmol/L (98-107); POTASSIUM 5.1 mmol/L (3.5-5.1); SODIUM SERUM 125 mmol/L (136-145)
[2023-03-01] MEDS ORDERED: SODIUM CHLORIDE 0.9% 250 ML IV ONE (06:13)
[2023-03-01 06:14] LABS: ALANINE AMINOTRANSFERASE 126 U/L (12-78); ALKALINE PHOSPHATASE 386 U/L (46-116); ANION GAP 11 mmol/L (8-16); ASPARTATE AMINOTRANSFERASE 360 U/L (15-37); BILIRUBIN,TOTAL 0.7 mg/dL (0.1-1.0); CALCIUM, TOTAL 7.1 mg/dL (8.8-10.5); CARBON DIOXIDE 19 mmol/L (22-29); CREATININE 0.67 mg/dL (0.60-1.30); GLOMERULAR FILTR. RATE CALC > 60 mL/min (>60); GLUCOSE,RANDOM 202 mg/dL (70-110); UREA NITROGEN, BLOOD 16 mg/dL (7-18)
[2023-03-01 06:15] LABS: ALBUMIN 2.3 g/dL (3.4-5.0); TOTAL PROTEIN, SERUM 6.3 g/dL (6.4-8.2)
[2023-03-01] MEDS: OMEPRAZOLE 20 MG CAPSULE PO SCH (08:22)
[2023-03-01 08:28] LABS: BASOPHILS % (AUTO) 0.5 % (0.0-2.0); EOSINOPHILS % (AUTO) 0 % (1.0-6.0); HEMATOCRIT 36.5 % (36-46); HEMOGLOBIN 11.6 g/dL (12.0-16.0); LYMPHOCYTES # (AUTO) 1.2 K/uL (1.0-4.8); LYMPHOCYTES % (AUTO) 10.2 % (22.0-44.0); MEAN CORPUSCULAR HEMOGLOBIN 27.9 pg (26.0-34.0); MEAN CORPUSCULAR HGB CONC 31.8 G/dL (31.0-37.0); MEAN CORPUSCULAR VOLUME 88 fL (80-100); MONOCYTES # (AUTO) 0.4 K/uL (0.1-1.0); MONOCYTES % (AUTO) 3.1 % (2.0-9.0); NEUTROPHILS # (AUTO) 9.8 K/uL (1.8-7.7); PLATELET COUNT (AUTO) 295 K/uL (150-450); RED BLOOD CELL COUNT(AUTO) 4.15 MIL/uL (4.00-5.20); RED CELL DISTRIBUTION WIDTH 18.6 % (11.5-14.5); WHITE BLOOD COUNT (AUTO) 11.4 K/uL (4.5-11.0)
[2023-03-01 08:29] LABS: NEUTROPHILS % (AUTO) 86.2 % (40.0-70.0)
[2023-03-01] MEDS: DEXAMETHASONE SOD PHOS 4 MG/ML VIAL IVP SCH (08:31)
[2023-03-01 15:14] LABS: ABG BASE EXCESS -8.8 mmol/L (-2.0-3.0); ABG CARBOXYHEMOGLOBIN 0.7 % (0.0-1.5); ABG METHEMOGLOBIN 0.3 % (0.0-1.5); ABG OXYGEN CONTENT 17.2 mL/dL (15.0-23.0); ABG OXYHEMOGLOBIN 91.1 % (94.0-100.0); ABG PCO2 35 mmHg (35-45); ABG PH 7.312 (7.35-7.450); ABG TOTAL HEMOGLOBIN 13.4 G/dL (12.0-18.0); PO2, ARTERIAL BG 71.5 mmHg (88.0-96.0); SOURCE, BLOOD GAS ARTERIAL; TEMPERATURE, FAHRENHEIT, BG 98.7 FAHREN (96.0-98.6)
[2023-03-01 15:15] LABS: ALLEN TEST, BLOOD GAS POS; O2 DEVICE,BLOOD GAS VENTILATOR (ROOM AIR); SITE, BLOOD GAS RT BRACHIAL; VT, ABG 450 ml
[2023-03-01 15:16] LABS: PEEP,BG 10 cm H2O
[2023-03-01] MEDS: FentaNYL CIT 1000MCG/0.9% NACL 100 ML IV PRN ×2 (15:30→20:12)
[2023-03-01] MEDS ORDERED: ROCURONIUM BROMIDE 10 MG/ML 5 ML VIAL ONE (16:26)
[2023-03-01] MEDS ORDERED: ETOMIDATE 2 MG/ML 10 ML VIAL ONE (16:26)
[2023-03-01 17:39] LABS: ABG A-A DIFF O2 470.8 mmHg (10-20.0); ABG BASE EXCESS -13.1 mmol/L (-2.0-3.0); ABG CARBOXYHEMOGLOBIN 0.4 % (0.0-1.5); ABG HCO3 14.8 mmol/L (22.0-26.0); ABG OXYGEN CONTENT 15.7 mL/dL (15.0-23.0); ABG OXYGEN SATURATION 87.7 % (95.0-98.0); ABG OXYHEMOGLOBIN 86.5 % (94.0-100.0); ABG PCO2 36 mmHg (35-45); ABG PH 7.226 (7.35-7.450); ABG TOTAL HEMOGLOBIN 12.9 G/dL (12.0-18.0); ALLEN TEST, BLOOD GAS Positive; O2 DEVICE,BLOOD GAS VENTILATOR (ROOM AIR); PO2, ARTERIAL BG 63.6 mmHg (88.0-96.0); SITE, BLOOD GAS LFT RADIAL; SOURCE, BLOOD GAS ARTERIAL; TEMPERATURE, FAHRENHEIT, BG 97.1 FAHREN (96.0-98.6); VENT MODE, BG Press. Control Vent (ROOM AIR); VT, ABG 406 ml
[2023-03-01 17:40] LABS: INSIPIRATORY PRESSURE, BG 26 cm H2O; PEEP,BG 8 cm H2O; SPONTANEOUS VT, BG 406 ml
[2023-03-01] MEDS: ACETAMINOPHEN 325 MG TABLET PO PRN (20:44)
[2023-03-02] VITALS (24 sets, daily range): BP systolic 89–109; BP diastolic 54–66; PULSE 109–137; RESP 30; TEMP 98.8–100.4; O2SAT 90–99
[2023-03-02] MEDS: WATER IV SCH ×3 (00:14→16:24)
[2023-03-02] MEDS: HEPARIN SODIUM,PORCINE 5,000 UNITS/ML VIAL SQ SCH ×3 (00:14→15:36)
[2023-03-02] MEDS: FentaNYL CIT 1000MCG/0.9% NACL 100 ML IV PRN ×5 (00:14→23:52)
[2023-03-02] MEDS: SULFAMETHOX IV SCH ×3 (00:14→16:24)
[2023-03-02] MEDS: PIPERACILLIN/TAZO 3.375 GM/D5W 50 ML IV SCH ×4 (00:14→17:28)
[2023-03-02] MEDS: DEXTROSE IV SCH ×3 (00:14→16:24)
[2023-03-02] MEDS: TRIMETH IV SCH ×3 (00:14→16:24)
[2023-03-02] MEDS: PROPOFOL 1000 MG/ISO-OSM 100 ML IV PRN ×5 (03:43→20:55)
[2023-03-02] MEDS: PHENYLEPHRINE 200 MG/D5%-WATER 250 ML IV PRN (03:44)
[2023-03-02] MEDS: IPRATROPIUM BROMIDE 0.5 MG/2.5 ML NEB SOLUTION NEB SCH ×6 (03:47→22:04)
[2023-03-02] MEDS: LEVALBUTEROL 0.63 MG/3 ML NEB SOLUTION NEB SCH ×6 (03:47→22:04)
[2023-03-02 05:58] LABS: BASOPHILS % (AUTO) 0.3 % (0.0-2.0); EOSINOPHILS % (AUTO) 0 % (1.0-6.0); HEMATOCRIT 34.8 % (36-46); HEMOGLOBIN 11.6 g/dL (12.0-16.0); LYMPHOCYTES # (AUTO) 1.3 K/uL (1.0-4.8); LYMPHOCYTES % (AUTO) 9.9 % (22.0-44.0); MEAN CORPUSCULAR HEMOGLOBIN 28.9 pg (26.0-34.0); MEAN CORPUSCULAR HGB CONC 33.3 G/dL (31.0-37.0); MEAN CORPUSCULAR VOLUME 87 fL (80-100); MONOCYTES # (AUTO) 0.7 K/uL (0.1-1.0); MONOCYTES % (AUTO) 5.2 % (2.0-9.0); NEUTROPHILS # (AUTO) 11.1 K/uL (1.8-7.7); NEUTROPHILS % (AUTO) 84.6 % (40.0-70.0); PLATELET COUNT (AUTO) 315 K/uL (150-450); RED BLOOD CELL COUNT(AUTO) 4.02 MIL/uL (4.00-5.20); RED CELL DISTRIBUTION WIDTH 18.1 % (11.5-14.5); WHITE BLOOD COUNT (AUTO) 13.2 K/uL (4.5-11.0)
[2023-03-02 06:30] LABS: ALBUMIN 2.3 g/dL (3.4-5.0); BILIRUBIN,TOTAL 0.7 mg/dL (0.1-1.0); CALCIUM, TOTAL 6.5 mg/dL (8.8-10.5); CREATININE 1.74 mg/dL (0.60-1.30); POTASSIUM 4.9 mmol/L (3.5-5.1); TOTAL PROTEIN, SERUM 5.9 g/dL (6.4-8.2)
[2023-03-02] MEDS: DEXAMETHASONE SOD PHOS 4 MG/ML VIAL IVP SCH (09:57)
[2023-03-02] MEDS: OMEPRAZOLE 20 MG CAPSULE PO SCH (09:57)
[2023-03-02 11:34] LABS: SOURCE, BLOOD GAS ARTERIAL
[2023-03-02 11:37] LABS: ABG A-A DIFF O2 423.7 mmHg (10-20.0); ABG BASE EXCESS -8.7 mmol/L (-2.0-3.0); ABG HCO3 17.9 mmol/L (22.0-26.0); ABG METHEMOGLOBIN 0.6 % (0.0-1.5); ABG OXYGEN SATURATION 90.8 % (95.0-98.0); ABG OXYHEMOGLOBIN 89.3 % (94.0-100.0); ABG PCO2 38 mmHg (35-45); ABG PH 7.288 (7.35-7.450); ABG TOTAL HEMOGLOBIN 12.7 G/dL (12.0-18.0); ALLEN TEST, BLOOD GAS Positive; O2 DEVICE,BLOOD GAS VENTILATOR (ROOM AIR); SITE, BLOOD GAS RT RADIAL; TEMPERATURE, FAHRENHEIT, BG 99.8 FAHREN (96.0-98.6); VENT MODE, BG Press. Control Vent (ROOM AIR)
[2023-03-02 11:38] LABS: INSIPIRATORY PRESSURE, BG 26 cm H2O; INSPIRATORY TIME, BG 0.8 SEC; PEEP,BG 8 cm H2O; SPONTANEOUS VT, BG 430 ml
[2023-03-02 13:06] LABS: COCCI IGG TITER COMP.FIX-KERN <1:2; COCCIOIDES AB IGG (ID)-KERN Non Reactive
[2023-03-02] MEDS: SODIUM CHLORIDE 0.9% 1,000 ML IV SCH (15:37)
[2023-03-02] MEDS: ACETAMINOPHEN 325 MG TABLET PO PRN ×2 (16:23→20:56)
[2023-03-02 16:39] LABS: APPEARANCE,URINE HAZY (CLEAR); BILIRUBIN,URINE NEGATIVE (NEGATIVE); COLOR,URINE LIGHT YELLOW (YELLOW); GLUCOSE, URINE (UA) NEGATIVE (NEGATIVE); KETONES,URINE NEGATIVE (NEGATIVE); LEUKOCYTE ESTERASE ,URINE NEGATIVE (NEGATIVE); NITRATE,URINE NEGATIVE (NEGATIVE); OCCULT BLOOD,URINE SMALL (NEGATIVE); PROTEIN,URINE TRACE mg/dL (NEGATIVE); SPECIFIC GRAVITIY, URINE 1.015 (1.003-1.030); UROBILINOGEN,URINE <=1.0 mg/dL (<=1.0)
[2023-03-02 16:43] LABS: AMORPHOUS SEDIMENT,UR Few /LPF (None Seen); BACTERIA,URINE Few /HPF (None Seen); COARSE GRANULAR CASTS,URINE 0-2 /LPF (None Seen); SQUAMOUS EPITHELIAL CELL,UR Few /LPF (None Seen); WBC,URINE 0-2 /HPF (0-5)
[2023-03-02] MEDS ORDERED: DEXTROSE 50%-WATER 25 GM/50 ML SYRINGE IVP PRN (16:45)
[2023-03-02] MEDS: INSULIN LISPRO 100 UNITS/ML SQ PRN ×2 (18:13→21:13)
[2023-03-02] MEDS ORDERED: LORazepam 2 MG/ML VIAL IM PRN (20:00)
[2023-03-02 21:21] LABS: GLUCOSE,POINT OF CARE 293 MG/DL (70-110)
[2023-03-02 21:26] LABS: GLUCOSE,POINT OF CARE 340 MG/DL (70-110)
[2023-03-03] VITALS (24 sets, daily range): BP systolic 92–146; BP diastolic 52–72; PULSE 100–135; RESP 30–34; TEMP 96.4–100; O2SAT 89–95
[2023-03-03] MEDS: PHENYLEPHRINE 200 MG/D5%-WATER 250 ML IV PRN (00:11)
[2023-03-03] MEDS: SULFAMETHOX IV SCH ×3 (00:11→15:18)
[2023-03-03] MEDS: WATER IV SCH ×3 (00:11→15:18)
[2023-03-03] MEDS: TRIMETH IV SCH ×3 (00:11→15:18)
[2023-03-03] MEDS: DEXTROSE IV SCH ×3 (00:11→15:18)
[2023-03-03] MEDS: DEXMEDETOMIDINE HCL 400 MCG in SODIUM CHLORIDE 0.9% 96 ML IV PRN (00:12)
[2023-03-03] MEDS: HEPARIN SODIUM,PORCINE 5,000 UNITS/ML VIAL SQ SCH ×3 (00:13→15:16)
[2023-03-03] MEDS: PIPERACILLIN/TAZO 3.375 GM/D5W 50 ML IV SCH ×4 (01:03→17:12)
[2023-03-03] MEDS: PROPOFOL 1000 MG/ISO-OSM 100 ML IV PRN ×6 (01:04→22:11)
[2023-03-03] MEDS: SODIUM CHLORIDE 0.9% 1,000 ML IV SCH ×3 (01:34→21:12)
[2023-03-03] MEDS ORDERED: LORazepam 2 MG/ML VIAL IVP PRN ×2 (02:00)
[2023-03-03] MEDS: LEVALBUTEROL 0.63 MG/3 ML NEB SOLUTION NEB SCH ×6 (02:49→22:56)
[2023-03-03] MEDS: IPRATROPIUM BROMIDE 0.5 MG/2.5 ML NEB SOLUTION NEB SCH ×6 (02:49→22:56)
[2023-03-03] MEDS: INSULIN LISPRO 100 UNITS/ML SQ PRN ×4 (03:44→21:15)
[2023-03-03 04:01] LABS: GLUCOSE,POINT OF CARE 299 MG/DL (70-110)
[2023-03-03 05:50] LABS: BASOPHILS % (AUTO) 0.4 % (0.0-2.0); EOSINOPHILS % (AUTO) 0 % (1.0-6.0); HEMATOCRIT 33.8 % (36-46); HEMOGLOBIN 11.4 g/dL (12.0-16.0); LYMPHOCYTES # (AUTO) 1.9 K/uL (1.0-4.8); MEAN CORPUSCULAR HEMOGLOBIN 29.7 pg (26.0-34.0); MEAN CORPUSCULAR HGB CONC 33.7 G/dL (31.0-37.0); MEAN CORPUSCULAR VOLUME 88 fL (80-100); MONOCYTES # (AUTO) 0.8 K/uL (0.1-1.0); MONOCYTES % (AUTO) 4.3 % (2.0-9.0); NEUTROPHILS # (AUTO) 16.1 K/uL (1.8-7.7); PLATELET COUNT (AUTO) 295 K/uL (150-450); RED BLOOD CELL COUNT(AUTO) 3.83 MIL/uL (4.00-5.20); WHITE BLOOD COUNT (AUTO) 18.8 K/uL (4.5-11.0)
[2023-03-03 05:51] LABS: NEUTROPHILS % (AUTO) 85.3 % (40.0-70.0)
[2023-03-03] MEDS: FentaNYL CIT 1000MCG/0.9% NACL 100 ML IV PRN ×4 (05:51→22:10)
[2023-03-03 06:31] LABS: ALBUMIN 2.1 g/dL (3.4-5.0); BILIRUBIN,TOTAL 0.8 mg/dL (0.1-1.0); CALCIUM, TOTAL 6.3 mg/dL (8.8-10.5); CREATININE 1.2 mg/dL (0.60-1.30)
[2023-03-03 06:32] LABS: TOTAL PROTEIN, SERUM 5.6 g/dL (6.4-8.2)
[2023-03-03] MEDS: DEXAMETHASONE SOD PHOS 4 MG/ML VIAL IVP SCH (08:11)
[2023-03-03] MEDS: OMEPRAZOLE 20 MG CAPSULE PO SCH (08:11)
[2023-03-03] MEDS ORDERED: SODIUM CHLORIDE 0.9% 500 ML IV ONE ×2 (10:00→15:51)
[2023-03-03] MEDS: MIDAZOLAM HCL 100 MG in SODIUM CHLORIDE 0.9% 180 ML IV PRN (14:42)
[2023-03-03] MEDS: WATER IV PRN ×2 (15:12→21:18)
[2023-03-03] MEDS: DEXTROSE 5% IV PRN ×2 (15:12→21:18)
[2023-03-03] MEDS: CISATRACURIUM BESYLATE IV PRN ×2 (15:12→21:18)
[2023-03-03 20:15] LABS: GLUCOSE,POINT OF CARE 279 MG/DL (70-110)
[2023-03-03 21:25] LABS: GLUCOSE,POINT OF CARE 329 MG/DL (70-110)
[2023-03-03 22:26] LABS: GLUCOMETER DEV NAME(LOC) ICUN.5; GLUCOSE,POINT OF CARE 282 MG/DL (70-110)
[2023-03-04] VITALS (23 sets, daily range): BP systolic 94–147; BP diastolic 41–53; PULSE 107–128; RESP 30; TEMP 94.5–96.9; O2SAT 80–100
[2023-03-04] MEDS: PIPERACILLIN/TAZO 3.375 GM/D5W 50 ML IV SCH ×3 (00:19→12:32)
[2023-03-04] MEDS: HEPARIN SODIUM,PORCINE 5,000 UNITS/ML VIAL SQ SCH ×3 (00:19→16:51)
[2023-03-04] MEDS: PROPOFOL 1000 MG/ISO-OSM 100 ML IV PRN ×5 (00:20→16:53)
[2023-03-04] MEDS: TRIMETH IV SCH ×3 (00:22→16:53)
[2023-03-04] MEDS: SULFAMETHOX IV SCH ×3 (00:22→16:53)
[2023-03-04] MEDS: DEXTROSE IV SCH ×3 (00:22→16:53)
[2023-03-04] MEDS: WATER IV SCH ×3 (00:22→16:53)
[2023-03-04] MEDS: LEVALBUTEROL 0.63 MG/3 ML NEB SOLUTION NEB SCH ×6 (02:46→23:07)
[2023-03-04] MEDS: IPRATROPIUM BROMIDE 0.5 MG/2.5 ML NEB SOLUTION NEB SCH ×6 (02:46→23:07)
[2023-03-04] MEDS: FentaNYL CIT 1000MCG/0.9% NACL 100 ML IV PRN ×4 (03:11→16:52)
[2023-03-04] MEDS: INSULIN LISPRO 100 UNITS/ML SQ PRN ×2 (03:43→14:54)
[2023-03-04 03:46] LABS: GLUCOSE,POINT OF CARE 298 MG/DL (70-110)
[2023-03-04 06:09] LABS: BASOPHILS % (AUTO) 0.4 % (0.0-2.0); EOSINOPHILS % (AUTO) 0 % (1.0-6.0); HEMATOCRIT 26.2 % (36-46); LYMPHOCYTES # (AUTO) 0.6 K/uL (1.0-4.8); LYMPHOCYTES % (AUTO) 4.8 % (22.0-44.0); MEAN CORPUSCULAR HEMOGLOBIN 30.6 pg (26.0-34.0); MEAN CORPUSCULAR HGB CONC 34.6 G/dL (31.0-37.0); MEAN CORPUSCULAR VOLUME 89 fL (80-100); MONOCYTES # (AUTO) 0.4 K/uL (0.1-1.0); MONOCYTES % (AUTO) 3.2 % (2.0-9.0); NEUTROPHILS # (AUTO) 12.1 K/uL (1.8-7.7); PLATELET COUNT (AUTO) 180 K/uL (150-450); RED BLOOD CELL COUNT(AUTO) 2.95 MIL/uL (4.00-5.20); RED CELL DISTRIBUTION WIDTH 19.5 % (11.5-14.5); WHITE BLOOD COUNT (AUTO) 13.3 K/uL (4.5-11.0)
[2023-03-04 06:22] LABS: ALBUMIN 1.7 g/dL (3.4-5.0); ALKALINE PHOSPHATASE 263 U/L (46-116); ANION GAP 7 mmol/L (8-16); ASPARTATE AMINOTRANSFERASE 204 U/L (15-37); BILIRUBIN,TOTAL 0.7 mg/dL (0.1-1.0); CARBON DIOXIDE 23 mmol/L (22-29); CHLORIDE 105 mmol/L (98-107); CREATININE 0.65 mg/dL (0.60-1.30); GLOMERULAR FILTR. RATE CALC > 60 mL/min (>60); GLUCOSE,RANDOM 349 mg/dL (70-110); POTASSIUM 4.8 mmol/L (3.5-5.1); SODIUM SERUM 135 mmol/L (136-145); UREA NITROGEN, BLOOD 11 mg/dL (7-18)
[2023-03-04 06:29] LABS: NEUTROPHILS % (AUTO) 91.6 % (40.0-70.0)
[2023-03-04] MEDS: CISATRACURIUM BESYLATE IV PRN (07:33)
[2023-03-04] MEDS: DEXTROSE 5% IV PRN (07:33)
[2023-03-04] MEDS: WATER IV PRN (07:33)
[2023-03-04 07:58] LABS: ALANINE AMINOTRANSFERASE 80 U/L (12-78); CALCIUM, TOTAL 6.2 mg/dL (8.8-10.5); TOTAL PROTEIN, SERUM 4.7 g/dL (6.4-8.2)
[2023-03-04] MEDS: OMEPRAZOLE 20 MG CAPSULE PO SCH (08:39)
[2023-03-04] MEDS: DEXAMETHASONE SOD PHOS 4 MG/ML VIAL IVP SCH (08:39)
[2023-03-04] MEDS: SODIUM CHLORIDE 0.9% 1,000 ML IV SCH ×2 (08:39→16:54)
[2023-03-04 15:07] LABS: GLU 6-PHOSPATE DEHYDRO-QUANT 526 (127-427)
[2023-03-04] MEDS: CISATRACURIUM BESYLATE 50 MG in DEXTROSE 5%-WATER 245 ML IV PRN (16:53)
[2023-03-04] MEDS: MIDAZOLAM HCL 100 MG in SODIUM CHLORIDE 0.9% 180 ML IV PRN (18:49)
[2023-03-04 23:41] LABS: GLUCOMETER DEV NAME(LOC) ICUN.5; GLUCOSE,POINT OF CARE 331 MG/DL (70-110)
[2023-03-05] VITALS (21 sets, daily range): BP systolic 103–124; BP diastolic 30–60; PULSE 60–148; RESP 30; TEMP 95–99.7; O2SAT 84–100
[2023-03-05] MEDS: HEPARIN SODIUM,PORCINE 5,000 UNITS/ML VIAL SQ SCH ×3 (00:08→15:36)
[2023-03-05] MEDS: PROPOFOL 1000 MG/ISO-OSM 100 ML IV PRN ×6 (00:09→18:57)
[2023-03-05] MEDS: FentaNYL CIT 1000MCG/0.9% NACL 100 ML IV PRN ×5 (00:09→18:57)
[2023-03-05] MEDS: WATER IV SCH ×3 (00:15→15:36)
[2023-03-05] MEDS: SULFAMETHOX IV SCH ×3 (00:15→15:36)
[2023-03-05] MEDS: TRIMETH IV SCH ×3 (00:15→15:36)
[2023-03-05] MEDS: DEXTROSE IV SCH ×3 (00:15→15:36)
[2023-03-05] MEDS: INSULIN LISPRO 100 UNITS/ML SQ PRN ×4 (00:53→19:30)
[2023-03-05] MEDS: LEVALBUTEROL 0.63 MG/3 ML NEB SOLUTION NEB SCH ×6 (03:00→22:15)
[2023-03-05] MEDS: IPRATROPIUM BROMIDE 0.5 MG/2.5 ML NEB SOLUTION NEB SCH ×6 (03:00→22:15)
[2023-03-05] MEDS: SODIUM CHLORIDE 0.9% 1,000 ML IV SCH ×2 (04:21→15:10)
[2023-03-05] MEDS: CISATRACURIUM BESYLATE 50 MG in DEXTROSE 5%-WATER 245 ML IV PRN (04:59)
[2023-03-05 05:26] LABS: GLUCOMETER DEV NAME(LOC) ICUN.5; GLUCOSE,POINT OF CARE 300 MG/DL (70-110)
[2023-03-05] MEDS: MIDAZOLAM HCL 100 MG in SODIUM CHLORIDE 0.9% 180 ML IV PRN (05:41)
[2023-03-05 05:53] LABS: BASOPHILS % (AUTO) 0.3 % (0.0-2.0); EOSINOPHILS % (AUTO) 0 % (1.0-6.0); HEMATOCRIT 24.7 % (36-46); HEMOGLOBIN 8.4 g/dL (12.0-16.0); LYMPHOCYTES # (AUTO) 1.1 K/uL (1.0-4.8); LYMPHOCYTES % (AUTO) 5.3 % (22.0-44.0); MEAN CORPUSCULAR HEMOGLOBIN 30.7 pg (26.0-34.0); MEAN CORPUSCULAR HGB CONC 34.2 G/dL (31.0-37.0); MEAN CORPUSCULAR VOLUME 90 fL (80-100); MONOCYTES # (AUTO) 0.7 K/uL (0.1-1.0); MONOCYTES % (AUTO) 3.6 % (2.0-9.0); NEUTROPHILS # (AUTO) 18.5 K/uL (1.8-7.7); PLATELET COUNT (AUTO) 214 K/uL (150-450); RED BLOOD CELL COUNT(AUTO) 2.75 MIL/uL (4.00-5.20); RED CELL DISTRIBUTION WIDTH 19.4 % (11.5-14.5); WHITE BLOOD COUNT (AUTO) 20.4 K/uL (4.5-11.0)
[2023-03-05 05:54] LABS: NEUTROPHILS % (AUTO) 90.8 % (40.0-70.0)
[2023-03-05 06:12] LABS: ALBUMIN 1.7 g/dL (3.4-5.0); ALKALINE PHOSPHATASE 292 U/L (46-116); ANION GAP 8 mmol/L (8-16); ASPARTATE AMINOTRANSFERASE 228 U/L (15-37); BILIRUBIN,TOTAL 1.1 mg/dL (0.1-1.0); CARBON DIOXIDE 21 mmol/L (22-29); CHLORIDE 103 mmol/L (98-107); CREATINE KINASE, TOTAL ONLY 891 U/L (26-192); CREATININE 0.83 mg/dL (0.60-1.30); GLOMERULAR FILTR. RATE CALC > 60 mL/min (>60); GLUCOSE,RANDOM 346 mg/dL (70-110); POTASSIUM 5.6 mmol/L (3.5-5.1); SODIUM SERUM 132 mmol/L (136-145); UREA NITROGEN, BLOOD 15 mg/dL (7-18)
[2023-03-05 06:21] LABS: CALCIUM, TOTAL 5.2 mg/dL (8.8-10.5)
[2023-03-05 06:24] LABS: ALANINE AMINOTRANSFERASE 91 U/L (12-78); TOTAL PROTEIN, SERUM 4.5 g/dL (6.4-8.2)
[2023-03-05] MEDS ORDERED: KETAMINE HCL 500 MG in DEXTROSE 5%-WATER 490 ML IV PRN (08:15)
[2023-03-05] MEDS ORDERED: HYDROmorphone HCL 2 MG/ML SYRINGE IVP PRN (08:15)
[2023-03-05] MEDS: OMEPRAZOLE 20 MG CAPSULE PO SCH (09:41)
[2023-03-05] MEDS: DEXAMETHASONE SOD PHOS 4 MG/ML VIAL IVP SCH (09:41)
[2023-03-05 10:07] LABS: ADENOVIRUS (RESP PCR) Not Detected (Not Detected); BORDETELLA PARAPERTUSSIS PCR Not Detected (Not Detected); CHLAMYDOPHILA PNEUMONIAE PCR Not Detected (Not Detected); HUMAN RHINO/ENTERO VIRUS PCR Not Detected (Not Detected); MYCOPLASMA PNEUMONIAE PCR Not Detected (Not Detected); NP BORDETELLA PERTUSIS Not Detected (Not Detected); NP CORONAVIRUS 229E PCR Not Detected (Not Detected); NP CORONAVIRUS HKU1 PCR Not Detected (Not Detected); NP CORONAVIRUS NL63 PCR Not Detected (Not Detected); NP CORONAVIRUS OC43 PCR Not Detected (Not Detected); NP HUMAN METAPNEUMOVIRUS PCR Not Detected (Not Detected); NP INFLUENZA A PCR Not Detected (Not Detected); NP INFLUENZA A/H1 PCR Not Detected (Not Detected); NP INFLUENZA A/H1-2009 PCR Not Detected (Not Detected); NP INFLUENZA A/H3 PCR Not Detected (Not Detected); NP INFLUENZA B PCR Not Detected (Not Detected); NP PARAINFLUENA 4 PCR Not Detected (Not Detected); NP PARAINFLUENZA 1 PCR Not Detected (Not Detected); NP PARAINFLUENZA 2 PCR Not Detected (Not Detected); NP PARAINFLUENZA 3 PCR Not Detected (Not Detected); NP RESPIRATORY SYNCYTIAL V PCR Not Detected (Not Detected); NP SARS-COV-2 PCR Detected (Not Detected)
[2023-03-05 15:07] LABS: C. PNEUMONAIE IGG TITER <1:100 (< 1:100); C. PNEUMONIAE IGM TITER <1:10 (< 1:10); C. PSITTACI IGM TITER <1:10 (< 1:10); C. TRACHOMATIS IGG TITER <1:100 (< 1:100); C. TRACHOMATIS IGM TITER <1:10 (< 1:10)
[2023-03-05] MEDS: PIPERACILLIN/TAZO 3.375 GM/D5W 50 ML IV SCH ×2 (15:10→20:49)
[2023-03-05 19:36] LABS: GLUCOSE,POINT OF CARE 374 MG/DL (70-110)
[2023-03-05 19:36] LABS: GLUCOSE,POINT OF CARE 242 MG/DL (70-110)
[2023-03-05 20:15] LABS: GLUCOMETER DEV NAME(LOC) ICUN.5; GLUCOSE,POINT OF CARE 252 MG/DL (70-110)
[2023-03-06] VITALS (31 sets, daily range): BP systolic 85–126; BP diastolic 11–45; PULSE 51–116; RESP 30–34; TEMP 91.1–95.9; O2SAT 75–94
[2023-03-06] MEDS: TRIMETH IV SCH ×3 (00:08→16:07)
[2023-03-06] MEDS: WATER IV SCH ×3 (00:08→16:07)
[2023-03-06] MEDS: SODIUM CHLORIDE 0.9% 1,000 ML IV SCH ×2 (00:08→09:30)
[2023-03-06] MEDS: DEXTROSE IV SCH ×3 (00:08→16:07)
[2023-03-06] MEDS: SULFAMETHOX IV SCH ×3 (00:08→16:07)
[2023-03-06] MEDS: CISATRACURIUM BESYLATE 50 MG in DEXTROSE 5%-WATER 245 ML IV PRN (00:09)
[2023-03-06] MEDS: FentaNYL CIT 1000MCG/0.9% NACL 100 ML IV PRN (00:09)
[2023-03-06] MEDS: HEPARIN SODIUM,PORCINE 5,000 UNITS/ML VIAL SQ SCH ×2 (00:10→08:00)
[2023-03-06] MEDS: PROPOFOL 1000 MG/ISO-OSM 100 ML IV PRN ×2 (00:10→08:27)
[2023-03-06] MEDS: INSULIN LISPRO 100 UNITS/ML SQ PRN (00:11)
[2023-03-06 01:49] LABS: ABG BASE EXCESS -20.6 mmol/L (-2.0-3.0); ABG CARBOXYHEMOGLOBIN 0.4 % (0.0-1.5); ABG METHEMOGLOBIN 0.7 % (0.0-1.5); ABG OXYGEN CONTENT 6.9 mL/dL (15.0-23.0); ABG OXYHEMOGLOBIN 66.3 % (94.0-100.0); ABG PCO2 65 mmHg (35-45); SOURCE, BLOOD GAS ARTERIAL; TEMPERATURE, FAHRENHEIT, BG 95.9 FAHREN (96.0-98.6)
[2023-03-06 01:50] LABS: ABG PH 6.894 (7.35-7.450)
[2023-03-06 01:51] LABS: ABG HCO3 9.2 mmol/L (22.0-26.0); ABG TOTAL HEMOGLOBIN 7.3 G/dL (12.0-18.0); ALLEN TEST, BLOOD GAS Positive; O2 DEVICE,BLOOD GAS VENTILATOR (ROOM AIR); SITE, BLOOD GAS ARTERIAL LINE; VENT MODE, BG Press. Control Vent (ROOM AIR)
[2023-03-06 01:52] LABS: HEMATOCRIT 21.7 % (36-46); HEMOGLOBIN 7.2 g/dL (12.0-16.0); MEAN CORPUSCULAR HEMOGLOBIN 31.7 pg (26.0-34.0); MEAN CORPUSCULAR HGB CONC 33.3 G/dL (31.0-37.0); MEAN CORPUSCULAR VOLUME 95 fL (80-100); PLATELET COUNT (AUTO) 167 K/uL (150-450); RED BLOOD CELL COUNT(AUTO) 2.28 MIL/uL (4.00-5.20); RED CELL DISTRIBUTION WIDTH 20.4 % (11.5-14.5)
[2023-03-06 01:52] LABS: INSIPIRATORY PRESSURE, BG 26 cm H2O; PEEP,BG 8 cm H2O; SPONTANEOUS VT, BG 321 ml; VT, ABG 321 ml
[2023-03-06 02:05] LABS: ALBUMIN 1.3 g/dL (3.4-5.0); BILIRUBIN,TOTAL 1.2 mg/dL (0.1-1.0); CALCIUM, TOTAL 6.5 mg/dL (8.8-10.5); CREATININE 1.81 mg/dL (0.60-1.30)
[2023-03-06 02:11] LABS: POTASSIUM 6.9 mmol/L (3.5-5.1); TROPONIN I-HIGH SENSITIVITY 914 ng/L (<51)
[2023-03-06] MEDS ORDERED: SODIUM BICARBONATE [ADULT] 8.4% 50 MEQ/50 ML SYRINGE IVP ONE ×2 (02:15→05:45)
[2023-03-06] MEDS: PIPERACILLIN/TAZO 3.375 GM/D5W 50 ML IV SCH ×2 (02:18→08:10)
[2023-03-06] MEDS: SODIUM BICARBONATE 150 MEQ in DEXTROSE 5%-WATER 1,000 ML IV SCH ×2 (02:24→16:36)
[2023-03-06 02:29] LABS: BAND NEUTROPHILS % (MANUAL) 18 % (0-5); CORRECTED WHITE BLOOD COUNT 22.8 K/uL (4.5-11.0); LYMPHOCYTES % (MANUAL) 7 % (22-44); METAMYELOCYTES % 2 % (0-0); MONOCYTES % (MANUAL) 2 % (2-9); SEGMENTED NEUTROPHILS % 71 % (40-70); TOTAL CELLS COUNTED 100; WHITE BLOOD COUNT (AUTO) 22.8 K/uL (4.5-11.0)
[2023-03-06 02:30] LABS: RBC MORPHOLOGY COMMENT ABNORMAL RBC MORPH
[2023-03-06] MEDS ORDERED: CALCIUM CHLORIDE 100 MG/ML 10 ML SYRINGE IVP ONE (02:30)
[2023-03-06] MEDS ORDERED: INSULIN REGULAR, HUMAN 100 UNITS/ML IVP ONE ×2 (02:30→05:45)
[2023-03-06] MEDS ORDERED: ALBUTEROL SULFATE 2.5 MG/0.5 ML NEB SOLUTION NEB ONE (02:30)
[2023-03-06] MEDS ORDERED: DEXTROSE 50%-WATER 25 GM/50 ML SYRINGE IVP ONE (02:30)
[2023-03-06] MEDS ORDERED: CALCIUM GLUCONATE 100 MG/ML 10 ML IVP ONE (02:30)
[2023-03-06 02:31] LABS: TOTAL PROTEIN, SERUM 3.5 g/dL (6.4-8.2)
[2023-03-06] MEDS: LEVALBUTEROL 0.63 MG/3 ML NEB SOLUTION NEB SCH ×6 (02:43→23:52)
[2023-03-06] MEDS: IPRATROPIUM BROMIDE 0.5 MG/2.5 ML NEB SOLUTION NEB SCH ×6 (02:44→23:52)
[2023-03-06 03:17] LABS: LACTIC ACID 8.4 mmol/L (0.4-2.0)
[2023-03-06 03:32] LABS: GLUCOMETER DEV NAME(LOC) ICUN.5; GLUCOSE,POINT OF CARE 232 MG/DL (70-110)
[2023-03-06 03:35] LABS: GLUCOSE,POINT OF CARE 244 MG/DL (70-110)
[2023-03-06 03:36] LABS: GLUCOMETER DEV NAME(LOC) ICUN.5
[2023-03-06] MEDS: NOREPINEPHRINE 8 MG/0.9 % NACL 250 ML IV PRN ×3 (04:03→19:14)
[2023-03-06] MEDS: PHENYLEPHRINE 200 MG/D5%-WATER 250 ML IV PRN ×2 (04:12→21:37)
[2023-03-06 04:37] LABS: ABG BASE EXCESS -21.8 mmol/L (-2.0-3.0); ABG CARBOXYHEMOGLOBIN 0.7 % (0.0-1.5); ABG METHEMOGLOBIN 0.5 % (0.0-1.5); ABG OXYGEN CONTENT 7.5 mL/dL (15.0-23.0); ABG OXYHEMOGLOBIN 76.9 % (94.0-100.0); ABG PCO2 62 mmHg (35-45); ABG PH 6.881 (7.35-7.450); PO2, ARTERIAL BG 54.6 mmHg (88.0-96.0); SOURCE, BLOOD GAS ARTERIAL
[2023-03-06 04:38] LABS: ABG HCO3 8.6 mmol/L (22.0-26.0); ABG OXYGEN SATURATION 77.8 % (95.0-98.0); ABG TOTAL HEMOGLOBIN 6.8 G/dL (12.0-18.0); SITE, BLOOD GAS ARTERIAL LINE
[2023-03-06 04:39] LABS: INSIPIRATORY PRESSURE, BG 26 cm H2O; O2 DEVICE,BLOOD GAS VENTILATOR (ROOM AIR); PEEP,BG 14 cm H2O; SPONTANEOUS VT, BG 404 ml; VENT MODE, BG Press. Control Vent (ROOM AIR); VT, ABG 404 ml
[2023-03-06 05:04] LABS: HEMATOCRIT 21.3 % (36-46); MEAN CORPUSCULAR HEMOGLOBIN 31.1 pg (26.0-34.0); MEAN CORPUSCULAR HGB CONC 32.4 G/dL (31.0-37.0); MEAN CORPUSCULAR VOLUME 96 fL (80-100); PLATELET COUNT (AUTO) 177 K/uL (150-450); RED BLOOD CELL COUNT(AUTO) 2.22 MIL/uL (4.00-5.20); RED CELL DISTRIBUTION WIDTH 20.3 % (11.5-14.5)
[2023-03-06 05:13] LABS: HEMOGLOBIN 6.9 g/dL (12.0-16.0)
[2023-03-06 05:16] LABS: ALBUMIN 1.2 g/dL (3.4-5.0); BILIRUBIN,TOTAL 1.3 mg/dL (0.1-1.0); CALCIUM, TOTAL 8.1 mg/dL (8.8-10.5); CREATININE 2.04 mg/dL (0.60-1.30); POTASSIUM 5.5 mmol/L (3.5-5.1)
[2023-03-06 05:26] LABS: TOTAL PROTEIN, SERUM 3.6 g/dL (6.4-8.2)
[2023-03-06 05:28] LABS: BAND NEUTROPHILS % (MANUAL) 14 % (0-5); CORRECTED WHITE BLOOD COUNT 24.5 K/uL (4.5-11.0); LYMPHOCYTES % (MANUAL) 7 % (22-44); METAMYELOCYTES % 3 % (0-0); MONOCYTES % (MANUAL) 2 % (2-9); SEGMENTED NEUTROPHILS % 74 % (40-70); TOTAL CELLS COUNTED 100; WHITE BLOOD COUNT (AUTO) 24.5 K/uL (4.5-11.0)
[2023-03-06 05:29] LABS: RBC MORPHOLOGY COMMENT ABNORMAL RBC MORPH
[2023-03-06 07:40] LABS: TROPONIN I-HIGH SENSITIVITY 1828 ng/L (<51)
[2023-03-06] MEDS: DEXAMETHASONE SOD PHOS 4 MG/ML VIAL IVP SCH (08:11)
[2023-03-06] MEDS: OMEPRAZOLE 20 MG CAPSULE PO SCH (08:11)
[2023-03-06] MEDS ORDERED: SODIUM CHLORIDE 0.9% 500 ML IV ONE (08:32)
[2023-03-06] MEDS ORDERED: HEPARIN SODIUM 25000 UNITS/D5W 250 ML IV PRN (10:45)
[2023-03-06] MEDS ORDERED: HEPARIN SODIUM,PORCINE 5,000 UNITS/ML VIAL IVP PRN ×2 (10:45)
[2023-03-06] MEDS ORDERED: POTASSIUM CHLORIDE 15 MEQ in NXSTAGE RFP-402 K0/CA3 5,000 ML IRRIG PRN (11:30)
[2023-03-06 12:32] LABS: INR 1.3 (0.9-1.1); PROTHROMBIN TIME 13.5 SEC (9.4-11.6)
[2023-03-06] MEDS ORDERED: *CLINICAL-MEROPENEM DOSING CLINICAL ONE (14:00)
[2023-03-06] MEDS ORDERED: DAPTOMYCIN 500 MG in SODIUM CHLORIDE 0.9% 50 ML IV SCH (15:00)
[2023-03-06] MEDS: MEROPENEM 1 GM in SODIUM CHLORIDE 0.9% 100 ML IV SCH ×2 (15:21→22:20)
[2023-03-06 20:35] LABS: GLUCOSE,POINT OF CARE 169 MG/DL (70-110)
[2023-03-06 20:35] LABS: GLUCOMETER DEV NAME(LOC) ICUN.5; GLUCOSE,POINT OF CARE 170 MG/DL (70-110)
[2023-03-06] MEDS ORDERED: VASOPRESSIN 40 UNITS in DEXTROSE 5%-WATER 98 ML IV PRN (21:45)
[2023-03-06] MEDS ORDERED: DOPamine 400MG/D5W[STANDARD] 250 ML IV PRN (22:15)
[2023-03-07] VITALS: BP 126/11; PULSE 51; RESP 30; TEMP 89.4
[2023-03-07 00:07] VITALS: PULSE 52; RESP 30; O2SAT 86
[2023-03-07] MEDS: WATER IV SCH (00:12)
[2023-03-07] MEDS: TRIMETH IV SCH (00:12)
[2023-03-07] MEDS: DEXTROSE IV SCH (00:12)
[2023-03-07] MEDS: SULFAMETHOX IV SCH (00:12)
[2023-03-07 01:21] LABS: GLUCOMETER DEV NAME(LOC) ICUN.5; GLUCOSE,POINT OF CARE 138 MG/DL (70-110)
[2023-03-07 01:30] VITALS: PULSE 47; RESP 30; O2SAT 71
[2023-03-07] MEDS ORDERED: EPINEPHrine 1:10,000 [1 MG/10 ML] SYRINGE IVP ONE (06:00)
[2023-03-07] MEDS ORDERED: DEXTROSE 50%-WATER 25 GM/50 ML SYRINGE IVP ONE (06:00)
[2023-03-07] MEDS ORDERED: SODIUM BICARBONATE [ADULT] 8.4% 50 MEQ/50 ML SYRINGE IVP ONE (06:00)
[2023-03-07] MEDS ORDERED: CALCIUM CHLORIDE 100 MG/ML 10 ML SYRINGE IVP ONE (06:00)
[2023-03-09] MEDS ORDERED: EPOETIN ALFA 10,000 UNITS/ML VIAL SQ SCH (09:00)
== END 2023-03-07 06:01 | DRG 870 ==
LOC: EMS 21:59 → 5S 02-24 03:57 → ICU 02-28 14:35
PROVIDERS: ADMIT Hospitalist; ATTEND Internal Medicine
PROC: XW033E5 Introduction of Remdesivir Anti-infective into Peripheral Vein, Percutaneous Approach, New Technology Group 5 (ICD-10-PCS; 2023-02-24)
PROC: 5A0945A Assistance with Respiratory Ventilation, 24-96 Consecutive Hours, High Flow/Velocity Cannula (ICD-10-PCS; 2023-02-26)
PROC: 5A09357 Assistance with Respiratory Ventilation, Less than 24 Consecutive Hours, Continuous Positive Airway Pressure (ICD-10-PCS; principal; 2023-02-28)
PROC: 0BH17EZ Insertion of Endotracheal Airway into Trachea, Via Natural or Artificial Opening (ICD-10-PCS; 2023-02-28)
PROC: 5A1955Z Respiratory Ventilation, Greater than 96 Consecutive Hours (ICD-10-PCS; 2023-02-28)
PROC: 5A09357 Assistance with Respiratory Ventilation, Less than 24 Consecutive Hours, Continuous Positive Airway Pressure (ICD-10-PCS; 2023-02-28)
PROC: 5A12012 Performance of Cardiac Output, Single, Manual (ICD-10-PCS; 2023-03-06)
PROC: 30233N1 Transfusion of Nonautologous Red Blood Cells into Peripheral Vein, Percutaneous Approach (ICD-10-PCS; 2023-03-06)
DX: A41.9 Sepsis, unspecified organism (principal); J12.82 Pneumonia due to coronavirus disease 2019; U07.1 COVID-19; J80 Acute respiratory distress syndrome; K72.00 Acute and subacute hepatic failure without coma; J15.9 Unspecified bacterial pneumonia; M33.13 Other dermatomyositis without myopathy; E87.1 Hypo-osmolality and hyponatremia; Z99.11 Dependence on respirator [ventilator] status; N17.9 Acute kidney failure, unspecified; Z66 Do not resuscitate; J84.10 Pulmonary fibrosis, unspecified; E11.9 Type 2 diabetes mellitus without complications; R79.89 Other specified abnormal findings of blood chemistry; D64.9 Anemia, unspecified; E87.5 Hyperkalemia; I46.9 Cardiac arrest, cause unspecified; Z79.4 Long term (current) use of insulin; Z79.624 Long term (current) use of inhibitors of nucleotide synthesis
CPT/HCPCS: 0202U; 36245; 36569; 36600; 71045; 71250; 73503; 76937; 80053; 81001; 82550; 82728; 82805; 82955; 82962; 83605; 83880; 84145; 84484; 84703; 85025; 85041; 85379; 85610; 85730; 86171; 86403; 86480; 86631; 86632; 86635; 86738; 86803; 86850; 86900; 86901; 86923; 87040; 87070; 87081; 87205; 87305; 87340; 87385; 87449; 87804; 87899; 88108; 88305; 88312; 93005; 93970; 94002; 94003; 94640; 94660; 99291; G0238; J0171; J0878; J1100; J1644; J1815; J2060; J2185; J2250; J2270; J2370; J2405; J2543; J2704; J3480; J3490; J3535; J7030; J7040; J7050; J7060; J7517; P9016; Q9967; 36415-L1; 36415-TC; 82803-TC; J7613; Z7610